=== PATIENT | male | born 1975 | race Caucasian/White ===

== ENCOUNTER 2023-05-08 00:41 | Inpatient (IN) | payer OTHER, SELFPAY ==
[2023-05-07 19:31] VITALS: BP 123/80; BMI 27.7
--- NOTE | 2023-05-07 19:44 | ED.GENMED ---
History of Present Illness
General
Chief Complaint: Chest Pain
Source: patient
Exam Limitations: none
Time Seen by Provider: 05/07/23 19:37
Travel History
Have you had any contact with someone who has COVID-19?: No
Do you have any symptoms of coronavirus? Fever > 100 degrees, chills, cough, shortness of breath, sore throat, loss of taste or smell, muscle aches, or headache?: No
History of Present Illness
History of Present Illness:
See MDM
Past History
Past History
ED Past Medical History: None
ED Past Surgical History: Other (Gastric bypass)
Social History
Tobacco: Non-smoker
Alcohol: None
Phy Exam
Physical Exam
Physical Exam:
See MDM
Scores
Heart Score for Chest Pain Patients
STEMI patient?: No
History: Slightly or Non-Suspicious
ECG: Normal
Age: >45 - <65 years
Risk Factors: 1 or 2 Risk Factors
Troponin: </= Normal Limit
Heart Score for Chest Pain Patients: 2
Heart Score Risk: 2.5% MACE over next 6 weeks
Course
Orders/Labs/Results
Orders:
Orders
05/07/23 19:31
EKG [Electrocardiogram (*1)] Urgent
Reason for Study: Tachycardia
EKG- Treatment ONCE
05/07/23 19:42
CT Abd/pel W Iv And Oral Contr Urgent
Comment:
Reason For Exam: General abd pain, constipated, hx bypass
Iohexol [Omnipaque] See Protocol PO NOW STA
Ketorolac [Toradol] 30 mg IV NOW STA
05/07/23 19:50
Comprehensive Metabolic Panel Urgent
Lipase Urgent
Troponin I Urgent
05/07/23 19:51
Complete Blood Count/With Diff Urgent
05/07/23 20:29
Dextrose 50%-Water [Dextrose 50% Syringe] 12.5 grams IV NOW STA
05/07/23 21:00
Dextrose 5%/0.9%Sodchl 1000 ml [D5/0.9% Sodium Chloride] 1,000 ml IV 150 mls/hr
05/07/23 23:10
Piperacillin/Tazo 3.375 Gram [Zosyn] 3.375 gram in 50 ml IV NOW
Vancomycin [Vancocin] 2,000 mg 0.9% Sodium Chloride 500 ml [Nss] 500 ml IV NOW
05/07/23 23:15
Blood Culture Q30M
FRANCISCA Source: Blood/Venous
Specimen Description:
05/07/23 23:45
Blood Culture Q30M
FRANCISCA Source: Blood/Venous
Specimen Description:
Abnormal Lab Results
05/07/23 05/07/23
19:50 19:51
RBC 3.72 L 10^6/uL
(4.70-6.10)
Hgb 7.1 L g/dL
(13.0-18.0)
Hct 25.7 L %
(39.0-52.0)
MCV 69.1 L fL
(80.0-94.0)
MCH 19.1 L pg
(27.0-31.0)
MCHC 27.6 L g/dL
(33.0-37.0)
RDW 18.9 H %
(11.5-14.5)
Plt Count 610 H 10^3/uL
(130-400)
Absolute Monos (auto) 1.1 H 10^3/uL
(0.1-0.6)
Monocytes % 12.4 H %
(1.7-9.3)
Potassium 3.4 L mmol/L
(3.5-5.1)
Chloride 115 H mmol/L
(98-107)
Carbon Dioxide 20 L mmol/L
(22-30)
Creatinine 0.6 L mg/dL
(0.7-1.3)
Glucose 30 L* mg/dl
(70-99)
Calcium 7.0 L mg/dl
(8.4-10.2)
Total Protein 6.2 L g/dl
(6.3-8.2)
Albumin 2.8 L g/dl
(3.5-5.0)
05/07/23 19:51
05/07/23 19:50
Vital Signs
Initial and Last Documented VS:
Initial Vital Signs
Temp Pulse Resp BP Pulse Ox
97.9 F 96 22 123/80 100
05/07/23 19:31 05/07/23 19:31 05/07/23 19:31 05/07/23 19:31 05/07/23 19:31
Last Documented Vital Signs
Temp Pulse Resp BP Pulse Ox
97.9 F 83 15 118/77 99
05/07/23 19:31 05/07/23 22:00 05/07/23 22:00 05/07/23 22:00 05/07/23 22:00
MDM/Problems Addressed
Differential Diagnosis Includes:
HPI and MDM Narrative:
47-year-old male presenting from [facility] for evaluation of chest pain and abdominal pain. Patient states abdominal pain has been going on for several days. He has not had a bowel movement in a week but that is not
uncommon for him. However, he does state he has a history of gastric bypass. Chest pain is nonexertional. EKG is nonischemic
Will obtain troponin given his complaint. Will obtain CT abdomen/pelvis given his history of bypass with abdominal pain
Physical exam
General: Appears sleepy and fatigued. Will answer questions appropriately
HEENT: protecting airway
Neck: appears supple
CV: No evidence of cyanosis. Regular rate and rhythm
Resp: No accessory muscle use. Lungs clear
Abd: Non-distended. No significant tenderness palpated
Extremities: No deformities
Neuro: alert
Psych: Normal affect
Skin: Intact
Problems Addressed including Acute and Chronic Conditions affecting care:
1. Chest pain
Acuity: acute
Prognosis: stable
Details: EKG nonischemic. Will obtain troponin. Lungs clear
2. Abdominal pain
Acuity: acute
Prognosis: stable
Details: Patient is likely constipated. However, will obtain CT given his history of gastric bypass to rule out any sort of obstruction versus internal hernia
3. Hypoglycemia
Acuity: acute
Prognosis: stable
Details: Likely in setting of poor p.o. intake. Will give half amp of dextrose and start D5 normal saline
4. Anemia
Acuity: acute
Prognosis: stable
Details: Likely in setting of malabsorption from gastric bypass
Updates
Patient found to be hypoglycemic on blood work. Will give amp of dextrose and start D5 normal saline
CT consistent with constipation as expected. No evidence of hernia or bowel obstruction. There is concern for pneumonia on the CT scan. This is likely the cause of his chest pain. Will start IV antibiotics and admit
Differential Diagnosis (but not limited to): Constipation, noncardiac chest pain, internal hernia, small bowel obstruction
Testing considered: Chest x-ray but lungs clear
Drug therapy (if applicable): OTC meds, please see d/c instruction regarding Rx drugs
Amount and/or Complexity of Data Reviewed
Clinical info obtained from: Patient
External data reviewed: N/A
Labs I independently reviewed (but not limited to): Anemic, low blood sugar
Radiology: The CT scan was personally and independently reviewed. In addition, official CT report reviewed.
Pulse Ox: not hypoxic
EKG independently reviewed: Sinus rhythm, normal axis, no STEMI
[facility]: Sinus rhythm
Critical Care: N/A
Risk of Complication:
Social Determinants of health: Poor social support
Discussed with other providers: Hospitalist
Escalation of Care includes Admit/Obs: Given the hypoglycemia and pneumonia, will admit
Occasional wrong word or 'sound a like' substitutions may have occurred due to the inherent limitations of voice recognition software. Read the chart carefully and recognize, using context, where substitutions have occurred.
*Critical Care Note
Total Time (30-74mins, 75-104mins- exclusive of procedures): Not Applicable
ED Attending Note
-
Portions of this chart may have been created with voice recognition software.� Occasional wrong word or��sound alike� substitutions may have occurred due to the inherent limitations of voice recognition software.
Discharge Plan
Departure
Patient Disposition: Admit
Date of Disposition: 05/07/23
Time of Disposition: 23:17
Admit to: Med/Surg
Presentation/result/management discussed w/ accepting MD/DO: Hospitalist
Discharge Problem:
PNA (pneumonia), Hypoglycemia, Anemia, Constipation
Referrals:
[facility] [Family Provider] -
Interventions
Interventions:
*Risk Screen - Suicide Last Done: 05/07/23 19:31
*General Assessment Last Done: 05/07/23 19:31
*Neglect/Abuse Screening Last Done: 05/07/23 19:31
ED- Fall Risk Assessment Last Done: 05/07/23 19:31
*ED COVID-19 Vaccine History Last Done: 05/07/23 19:31
ED- Cardiac Assessment Last Done: 05/07/23 19:31
[2023-05-07] MEDS: TORADOL 30 MG IV (19:58)
[2023-05-07] MEDS: OMNIPAQUE 50 ML PO (19:58)
[2023-05-07 20:00] VITALS: BP 112/75
[2023-05-07 20:07] LABS: % Eosinophils 2.5 % (0-6); % Immature Granulocytes 0.3 % (0-0.5); % Lymphocytes 24.4 % (20.5-51.1); % Monocytes 12.4 % (1.7-9.3); % Neutrophils 59.4 % (42.2-75.2); Absolute Basophils 0.1 10^3/uL (0-0.2); Absolute Eosinophils 0.2 10^3/uL (0-0.7); Absolute Lymphocytes 2.3 10^3/uL (1.2-3.4); Absolute Monocytes 1.1 10^3/uL (0.1-0.6); Absolute Neutrophils 5.5 10^3/uL (1.4-6.5); Hematocrit 25.7 % (39.0-52.0); Hemoglobin 7.1 g/dL (13.0-18.0); Mean Corp Hgb Conc. 27.6 g/dL (33.0-37.0); Mean Corpuscular Hgb 19.1 pg (27.0-31.0); Mean Corpuscular Volume 69.1 fL (80.0-94.0); Mean Platelet Volume 8.8 fL (7.4-10.4); Nucleated Red Blood Cells % 0 % (-); Platelet Count 610 10^3/uL (130-400); Red Blood Cell Count 3.72 10^6/uL (4.70-6.10); Red Cell Dist. Width 18.9 % (11.5-14.5); White Blood Cell Count 9.2 10^3/uL (4.8-10.8)
[2023-05-07 20:24] LABS: ALT (SGPT) 11 U/L (0-50); AST (SGOT) 22 U/L (17-59); Albumin 2.8 g/dl (3.5-5.0); Alkaline Phosphatase 99 U/L (38-126); Blood Urea Nitrogen 13 mg/dl (9-20); Carbon Dioxide 20 mmol/L (22-30); Chloride 115 mmol/L (98-107); Estimated Creatinine Clearance > 125 ml/min; Glucose 30 mg/dl (70-99); Lipase 180 U/L (23-300); Potassium 3.4 mmol/L (3.5-5.1); Sodium 137 mmol/L (135-145); Total Bilirubin 0.2 mg/dl (0.2-1.3); Total Protein 6.2 g/dl (6.3-8.2); eGFR > 60.00
[2023-05-07 20:27] LABS: Anisocytosis 1+; Hypochromasia 2+; Microcytosis 2+; Normal RBC Morphology No
[2023-05-07 20:28] LABS: Target Cells FEW
[2023-05-07 20:31] LABS: Troponin I < 0.012 ng/ml
[2023-05-07] MEDS: DEXTROSE 50% SYRINGE 12.5 GRAMS IV (20:32)
[2023-05-07] MEDS: D5/0.9% SODIUM CHLORIDE 1000 IV (20:38)
[2023-05-07 21:00] VITALS: BP 119/86
[2023-05-07 22:00] VITALS: BP 118/77
[2023-05-07 22:07] LABS: Glucose - Point of Care 86 mg/dl (70-99)
[2023-05-07 23:09] VITALS: BP 107/73
[2023-05-07] MEDS: ZOSYN 50 IV (23:27)
[2023-05-07] MEDS: VANCOCIN 540 MG IV (23:59)
[2023-05-08] VITALS (15 sets, daily range): BP systolic 99–127; BP diastolic 51–86; BMI 27.9
--- NOTE | 2023-05-08 00:28 | HPS.HSE ---
Family Physician
-
Family Physician: Facility [facility]
Chief Complaint
-
Chest Pain, Abdominal Pain, N/V
History of Present Illness
Patient is a 47y M with PMH significant for morbid obesity s/p gastric bypass and multiple surgeries related to traumas who presents to ED from [facility] complaining of chest pain and abdominal pain. At the time of my exam, patient is restless in
the bed and complaining of pain from the BP cuff. He states that he cannot remember why he came in. He admits that he has not moved his bowels since being incarcerated (6 days ago). He complains of abdominal pain, chest pain, heartburn. He notes
that he developed N/V today and had an episode prior to arrival and an episode here. He denies any gross blood loss. Patient denies any alcohol use. He takes drugs 'socially' but denies any daily habit. He is not sure what he takes / when he
takes them.
Patient was started on antibiotics (Cipro and Bactrim) in [facility] for RLE cellulitis.
Medical History
Past Medical History
Past Medical History: Reports Other
Additional Past Medical History:
Morbid Obesity s/p Gastric Bypass
GERD
Lumbar DDD / Fusion
Past Surgical History: Reports Other
Additional Past Surgical History:
Craniofacial Reconstruction (Chain saw)
Digital Reattachment (Circular Saw)
Jarred-en-Y Bypass
Lumbar Laminectomy and Fusion
Multiple Lumbar / Spine Surgeries
Social History
Tobacco: Smoker (Current every day smoker (none in 6 days since being incarcerated).)
Alcohol: None
Drug: Other (Occasional recreational drug use. No IV use.)
Living: [facility]
Family History
Family History: Not pertinent
Allergies / Home Medications
Allergies reflects when Allergies were last updated in [facility].
Home Medications with original date entered in [facility]
Allergy/Medication List:
Allergies
Allergy/AdvReac Type Severity Reaction Status Date / Time
No Known Allergies Allergy Verified 05/07/23 19:52
Home Medications
acetaminophen 325 mg tablet 650 mg PO BID PRN mild pain/fever 05/07/23
calcium carbonate 200 mg calcium (500 mg) chewable tablet (Calcium Antacid) 400 mg PO BID PRN heartburn 05/07/23
ciprofloxacin HCl 750 mg tablet 750 mg PO BID 05/07/23
multivitamin (Daily-Марина tablet) 1 tab PO DAILY 05/07/23
omeprazole 20 mg capsule,delayed release 20 mg PO DAILY 05/07/23
sulfamethoxazole 800 mg-trimethoprim 160 mg tablet (Bactrim DS) 1 tab PO BID 05/07/23
Review of Systems
-
History Source: Patient
A 12 point ROS was completed and negative except as noted: Yes
Constitutional: Denies Fever or Chills
EENT: Denies Sore Throat
Respiratory: Reports Trouble Breathing; Denies Cough
Cardiac: Reports Chest Pain
Abdomen/GI: Reports Abdominal Pain, Nausea, Vomiting, Constipated and Anorexia; Denies Bloody Stools or Black Stools
: Denies Dysuria, Frequency or Flank Pain
Neurological: Denies Dizzy or Headache
Psych: Reports Anxiety; Denies Depression
Physical Exam
Vital Signs
Vital Signs
Temp Pulse Resp BP Pulse Ox
97.9 F 79 15 107/73 98
05/07/23 19:31 05/07/23 23:45 05/07/23 23:45 05/07/23 23:09 05/08/23 00:06
Physical Exam
General: Other (47y M in moderate distress due to pain.)
HEENT: PERRLA and Other (Dry MM.)
Respiratory: Clear; No Wheezes, Rales or Rhonchi
Cardiac: S1/S2 and Regular Rhythm; No Murmur
GI: Other (Abdomen is softly distended. Bowel sounds are present but diminished. Diffusely tender without rebound. )
Musculoskeletal: No Clubbing, No Cyanosis and Other (Trace edema RLE with mild erythema and increased warmth.)
Neuro: AO x 3
Laboratory Results
-
05/07/23 19:51
05/07/23 19:50
Laboratory Results
Total Bilirubin 0.2 mg/dl (0.2-1.3) 05/07/23 19:50
AST 22 U/L (17-59) 05/07/23 19:50
ALT 11 U/L (0-50) 05/07/23 19:50
Alkaline Phosphatase 99 U/L (38-126) 05/07/23 19:50
Troponin I < 0.012 ng/ml 05/07/23 19:50
Lipase 180 U/L (23-300) 05/07/23 19:50
Impression/Plan
-
A/P: Patient is a 47y M with PMH significant for mutliple prior traumas and obesity s/p bypass surgery who presents [facility] ED from [facility] complaining of chest pain and abdominal pain.
Abdominal Pain
Severe Constipation
N/V likely secondary to the above
- Admit for further evaluation and treatment.
- Aggressive bowel regimen to alleviate significant constipation
- Patient has refused milk and molasses enema in the ED - I have urged him to reconsider.
- GI evaluation for additional recommendations and anemia eval (see below).
- Follow for clinical improvement.
- Avoid narcotic medications which may contribute to constipation.
RLE Cellulitis
- Patient with erythema and edema of the R lower leg.
- Some local skin breakdown / excoriations which appear to be secondary to restraints / cuffs.
- Change abx to IV Ancef for now.
- Follow for clinical improvement.
- Patient denies any immunocompromised state, IV drug use, etc.
Chest Pain
- Likely secondary to GI issues / constipation.
- Doubt ACS. Continue to follow serial trop and monitor for new symptoms.
- IV PPI for GERD symptoms worsened by constipation.
Hypoglycemia
- Patient initially presented with glucose of 30 - improved with supplemental glucose.
- He is on no glucose lowering medications.
- ? related to gastric bypass surgery / ? dumping syndrome - isabela with typically carb-heavy foods at [facility].
- Follow serial glucose and treat low values if needed.
- Continue IVFs with D5 overnight.
Microcytic Anemia
- Likely secondary to dietary deficiencies / prior gastric bypass.
- Patient notes that he is on no dietary supplements, etc.
- Check iron studies, B12, etc.
- Monitor for any obvious evidence of bleeding.
- Consider transfusion for Hgb < 7 or any new symptoms.
- GI eval as noted above - patient may benefit from eventual endoscopic evaluation(s).
Drug Use
- Patient denies any regular drug or alcohol use.
- Has been incarcerated x 6 days now.
- Agitated / restless in the ED.
- Monitor for worsening / additional symptoms that might be suggestive of substance withdrawal.
- BZDs as needed for increased agitation.
DVT Prophylaxis: SCDs
Code Status: Full
[2023-05-08] MEDS: D5/0.9% SODIUM CHLORIDE 1000 IV ×3 (02:46→21:58)
[2023-05-08 03:02] LABS: Glucose - Point of Care 79 mg/dl (70-99)
[2023-05-08 03:23] LABS: Iron 34 ug/dl (49-181)
[2023-05-08 03:33] LABS: Percent Saturation 8 % (20-50); Total Iron Binding Capacity 413 ug/dl (261-462)
[2023-05-08 03:34] LABS: Troponin I < 0.012 ng/ml
[2023-05-08 03:56] LABS: TSH Reflex To Free T4 1.68 uIU/ml (0.47-4.68)
[2023-05-08 04:00] LABS: Ferritin 5.1 ng/ml (17.9-464.0)
[2023-05-08 04:15] LABS: Vitamin B12 567 pg/ml (239-931)
[2023-05-08 06:20] LABS: Hematocrit 24.3 % (39.0-52.0); Mean Corp Hgb Conc. 27.6 g/dL (33.0-37.0); Mean Corpuscular Hgb 19.3 pg (27.0-31.0); Mean Corpuscular Volume 69.8 fL (80.0-94.0); Mean Platelet Volume 8.4 fL (7.4-10.4); Platelet Count 481 10^3/uL (130-400); Red Blood Cell Count 3.48 10^6/uL (4.70-6.10); Red Cell Dist. Width 18.9 % (11.5-14.5); White Blood Cell Count 6.9 10^3/uL (4.8-10.8)
[2023-05-08 06:31] LABS: Hemoglobin 6.7 g/dL (13.0-18.0)
[2023-05-08 06:37] LABS: Troponin I < 0.012 ng/ml
[2023-05-08 06:40] LABS: Blood Urea Nitrogen 14 mg/dl (9-20); Calcium 8.6 mg/dl (8.4-10.2); Carbon Dioxide 29 mmol/L (22-30); Chloride 104 mmol/L (98-107); Estimated Creatinine Clearance > 125 ml/min; Glucose 86 mg/dl (70-99); Magnesium 2.1 mg/dl (1.6-2.3); Potassium 4.3 mmol/L (3.5-5.1); Sodium 138 mmol/L (135-145); eGFR > 60.00
[2023-05-08] MEDS: PROTONIX IV 40 MG IV (07:57)
[2023-05-08] MEDS: NSS (PRESERVATIVE FREE) 10 ML IV (07:57)
[2023-05-08] MEDS: MIRALAX 17 GRAMS PO (07:57)
[2023-05-08] MEDS: COLACE 100 MG PO ×2 (07:57→21:45)
[2023-05-08 08:54] LABS: Glycohemoglobin (HgbA1c) 5.6 % (4.0-5.6)
--- NOTE | 2023-05-08 09:09 | CON.GI ---
Addendum entered and electronically signed by Natalie Hernandes DO 05/08/23 14:52:
Patient seen and examined independently of BOLIVAR. I agree with her note with my additions below
Kermit is a 47-year-old male with a history of Jarred-en-Y gastric bypass, no other abdominal surgeries but multiple injuries resulting in surgical procedures who does not seek medical care, currently incarcerated for the past week who comes in with
abdominal pain after not moving his bowels for 1 week. At baseline he says he goes every other day. He denies seeing any blood in the stool. Everything in his life is changed since being incarcerated. Previously using methamphetamines and
tobacco. Not on any medications previously. He currently feels nauseated, no vomiting, mainly crampy abdominal pain with distention. Says he is passing gas. This is never happened to him before.
# Microcytic anemia -likely in the setting of Jarred-en-Y gastric bypass and no medical care and no iron supplementation
-Patient getting transfused, no overt bleeding
# Abdominal pain -likely secondary to significant constipation -which could be functional or structural
--Unfortunately he is nauseous and on the verge of vomiting and therefore oral bowel regimen will be difficult
--Soon as he is able we will start oral regimen
-- Patient is agreeable to start enemas and will do them every 6
-- Tomorrow if no improvement consider Gastrografin enema to be both diagnostic and therapeutic
-- Avoid narcotics as this will only worsen the situation
Original Note:
Consultation
-
Date/Time Consultation Requested: 05/08/2351
Date/Time Consultation Performed: 05/08/23 0850
Requesting Provider: Dr. Corbett
Performing Provider: Dr. Hernandes/BOLIVAR Whaley
Reason for Consultation: constipation, anemia
Medical History
Chief Complaint / HPI
Chief Complaint: n/v, abdominal pain, CP
History of Present Illness:
47-year-old male who is currently incarcerated at [facility] for the past 6 days with no significant past medical history except for multiple traumas in the past, degenerative disc disease, lumbar fusion, gastric bypass which
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
distention. We are asked to evaluate for abdominal pain, anemia and constipation. The patient is a very poor historian, he does not give much information. He was interviewed in the presence of 2 guards. The patient states that his bowel habits
are usually every other day. He states his last bowel movement was 9 days ago. He also states that he started to have heartburn approximately 1 week ago. He presents with very vague complaints of heartburn, abdominal discomfort, abdominal
distention. He states he does not know what medications he was given. I did review the MAR from the long term. He was getting omeprazole, calcium carbonate, Tums, Bactrim, Cipro, Tylenol as needed, ibuprofen 400 mg as needed which on some days was
twice a day and a multivitamin. The patient denies any recent fevers, chills, he denies any recent vomiting to me although it does describe that he did have vomiting, melena, hematochezia, dysphagia or odynophagia, he denies any early satiety or
unintentional weight loss. He does state that he smokes cigarettes, he also uses illicit drugs in the form of methamphetamines and 'speedballs', he states that he last used this a little over a week ago. He does state that he was seen at the
[facility] [place] and had some sort of endoscopic procedure a little over a year ago. He does not recall why he had this. He does not recall actually what it was and he does not recall the findings. He does not recall ever having an
ulcer. He does not recall ever being told he was anemic in the past. Currently his father is in the ICU at [facility] with a bowel perforation. The patient has never had a colonoscopy. He does believe he has had an upper endoscopy
although he is unsure of when or where and does not recall any of the findings. He cannot tell me where he has had his bariatric surgery at he can also not tell me what the anatomy is like as well, whether it is a true gastric bypass Jarred-en-Y or
gastric sleeve. The patient denies any family history of GI malignancy to his knowledge.
Past Medical History
Past Medical History: GERD (recent heartburn x 1 week) and Other (drug abuse, multiple traumas, RLE cellulitis)
Past Surgical History: Other (lumbar fusion, gastric byspass )
Social History
Tobacco: Smoker
Alcohol: None
Drug: Other ('speed balls', meth)
Living: [facility] (6 days)
Family History
Family History: Other (no fam hx of GI malignancy, however father currently in ICU at [facility] for bowel perforation)
Allergies / Home Medications
Allergy/AdvReac Type Severity Reaction Status Date / Time
No Known Allergies Allergy Verified 05/07/23 19:52
Medication Instructions Recorded
acetaminophen 325 mg tablet 650 mg PO BID PRN mild pain/fever 05/07/23
calcium carbonate 200 mg calcium 400 mg PO BID PRN heartburn 05/07/23
(500 mg) chewable tablet (Calcium
Antacid)
ciprofloxacin HCl 750 mg tablet 750 mg PO BID 05/07/23
multivitamin (Daily-Марина tablet) 1 tab PO DAILY 05/07/23
omeprazole 20 mg capsule,delayed 20 mg PO DAILY 05/07/23
release
sulfamethoxazole 800 1 tab PO BID 05/07/23
mg-trimethoprim 160 mg tablet
(Bactrim DS)
Review of Systems
-
All other systems: A 12 pt ROS was Negative except as stated above in HPI
Vital Signs
Temp Pulse Resp BP Pulse Ox
97.9 F 59 14 115/72 100
05/07/23 19:31 05/08/23 06:06 05/08/23 06:00 05/08/23 06:06 05/08/23 04:45
Physical Exam
Exam
General: No Apparent Distress and Comfortable
HEENT: Anicteric
Respiratory: Clear (anterior)
Cardiac: Regular Rhythm
GI: Soft, Normal Bowel Sounds, Tender (mildly tender diffuse) and Distended (midly distended but soft)
Musculoskeletal: No Edema and Other (right leg shackle, loose afixed to bed)
Skin: Warm, Dry and Other (areas of abrasions on multiple sites over body)
Neuro: AO x 3
Psych: Calm
Results
WBC 6.9 10^3/uL (4.8-10.8) 05/08/23 06:03
Hgb 6.7 g/dL (13.0-18.0) L* 05/08/23 06:03
Hct 24.3 % (39.0-52.0) L 05/08/23 06:03
MCV 69.8 fL (80.0-94.0) L 05/08/23 06:03
Plt Count 481 10^3/uL (130-400) H D 05/08/23 06:03
Absolute Neuts (auto) 5.5 10^3/uL (1.4-6.5) 05/07/23 19:51
Sodium 138 mmol/L (135-145) 05/08/23 06:03
Potassium 4.3 mmol/L (3.5-5.1) D 05/08/23 06:03
Chloride 104 mmol/L (98-107) 05/08/23 06:03
Carbon Dioxide 29 mmol/L (22-30) 05/08/23 06:03
BUN 14 mg/dl (9-20) 05/08/23 06:03
Creatinine 0.8 mg/dL (0.7-1.3) 05/08/23 06:03
Calcium 8.6 mg/dl (8.4-10.2) D 05/08/23 06:03
Total Bilirubin 0.2 mg/dl (0.2-1.3) 05/07/23 19:50
AST 22 U/L (17-59) 05/07/23 19:50
ALT 11 U/L (0-50) 05/07/23 19:50
Alkaline Phosphatase 99 U/L (38-126) 05/07/23 19:50
Lipase 180 U/L (23-300) 05/07/23 19:50
Diagnostic Image Results:
CT Abd/Pelvis with OV contrast only:
IMPRESSION:
1. Very large colonic stool burden compatible with constipation.
2. Small patchy opacities in the left lower lobe most suspicious for mild pneumonia.
Electronically signed by Fran Alonso 05/07/2023 10:40 PM
CXR:
FINDINGS/impression:
The small patchy opacities described in the left lower lobe based on CT examination are difficult to identify radiographically. The lungs are essentially radiographically clear as far as visualized. No focal dense consolidation. No pneumothorax or
pleural effusion. No congestive heart failure.
Electronically signed by Damian Alvarenga MD 05/08/2023 8:43 AM
Prior GI Procedures:
EGD: unsure if had??
Colonoscopy: never had
Assessment / Plan
-
47-year-old male who is currently incarcerated at [facility] for the past 6 days with no significant past medical history except for multiple traumas in the past, degenerative disc disease, lumbar fusion, gastric bypass which
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
distention. We are asked to evaluate for abdominal pain, anemia and constipation. WBC is 6.9 (down from 7.1), hemoglobin is 6.7, hematocrit is 24.3, MCV is 69.8, MCH is 19.3, platelets 481. On arrival patient's glucose was 30 currently is 86.
Iron is 34, TIBC is 413, percent iron saturation is 8, ferritin is 5.1, total bilirubin 0.2, AST 22, ALT 11, alk phos 99 troponins have been less than 0.012 x 3, albumin 2.8, lipase 180, B12 567, TSH 1.68. CT of the abdomen and pelvis with IV
contrast only was performed that shows very large colonic stool burden compatible with constipation. Small patchy opacities in the left lower lobe most suspicious for mild pneumonia. I reviewed the CT images myself and it looks like the patient
has a very large amount of stool especially in the right side of his colon. The patient was ordered a milk of molasses enema which he refused. He was also ordered 1 unit of packed red blood cells, he has not received this as of yet. The patient
was started on pantoprazole, was given a dose of Toradol in the ER, this has not been continued. He was given a dose of MiraLAX and Colace. He continues on IV fluids. As well as Ancef. He remains on a clear liquid diet at this time.
Impression:
Abdominal pain
Severe constipation
Anemia, iron deficiency
History of gastric bypass
Plan:
-Continue PPI
-Transfuse to keep hemoglobin greater than 7
-Discussed with patient that he should consider using milk of molasses enema to stimulate bowel movements from below
-Continue MiraLAX, increase to twice daily
-Would avoid IV iron in times of acute infection
-Possible EGD/colonoscopy with severe anemia and change in bowel habits. Unsure how long patient is going to be incarcerated and unable to perform procedures. Also with patient's father with bowel perforation unsure etiology behind this.
-
Data Reviewed
-
Radiology: Report Reviewed by me
CT Scan: Report Reviewed by me
-
-
Thank you for consultation and allowing me to participate in the patient's care. Please call the field education coordinator GI physician during the after hours with any questions or concerns.
[2023-05-08] MEDS: ANCEF 10 IV ×2 (09:16→18:23)
[2023-05-08 11:41] LABS: Glucose - Point of Care 126 mg/dl (70-99)
[2023-05-08 17:37] LABS: Glucose - Point of Care 66 mg/dl (70-99)
--- NOTE | 2023-05-08 17:50 | TRANSFER ---
Patient transferred from ED to 334 and walked from stretcher to bed accompanied by officers. VSFrancisco, [email or web address], admission completed in ED. Assessment complete by this RN. Call johnson within reach.
[2023-05-08] MEDS: CITROMA 300 ML PO (18:03)
[2023-05-08 18:19] LABS: Glucose - Point of Care 75 mg/dl (70-99)
[2023-05-08 18:27] LABS: Troponin I < 0.012 ng/ml
--- NOTE | 2023-05-08 18:28 | W.PN.UPDATE ---
Update Note
Progress Note Update
Non-billable addendum
Patient with symptomatic anemia - 2 units ordered
GI saw in consult - conservative treatment at this time. Likely deficient in setting of RYGB and lack of oral iron.
Also receiving bowel regimen (enemas due to nausea)
Assessment:
Abdominal Pain
Severe Constipation
N/V likely secondary to the above
- Aggressive bowel regimen to alleviate significant constipation as per GI
- Avoid narcotic medications which may contribute to constipation.
RLE Cellulitis
- Patient with erythema and edema of the R lower leg.
- Some local skin breakdown / excoriations which appear to be secondary to restraints / cuffs.
- Change abx to IV Ancef for now.
Chest Pain
- Likely secondary to GI issues / constipation.
- Doubt ACS.� Continue to follow serial trop and monitor for new symptoms.
- IV PPI for GERD symptoms worsened by constipation.
Hypoglycemia
- Patient initially presented with glucose of 30 - improved with supplemental glucose.
- He is on not glucose lowering medications.
- ? related to gastric bypass surgery / ? dumping syndrome - isabela with typically carb-heavy foods at detention.
- Follow serial glucose and treat low values if needed.
- Continue IVFs/D5
Microcytic Anemia
- Likely secondary to dietary deficiencies / prior gastric bypass.
- Patient notes that he is on no dietary supplements, etc.
- He is iron deficiency
- Hb 6.7 - 2 units ordered
- GI eval as noted above - patient may benefit from eventual endoscopic evaluation(s).
Drug Use
- Patient denies any regular drug or alcohol use.
- Has been incarcerated x 6 days now.
- Agitated / restless in the ED.
- Monitor for worsening / additional symptoms that might be suggestive of substance withdrawal.
- BZDs as needed for increased agitation.
DVT Prophylaxis:� SCDs
Code Status:� Full
[2023-05-08 20:04] LABS: Glucose - Point of Care 70 mg/dl (70-99)
[2023-05-08] MEDS: SENOKOT 17.1999999999999993 MG PO (21:45)
[2023-05-08 22:00] LABS: Glucose - Point of Care 94 mg/dl (70-99)
[2023-05-09] VITALS (8 sets, daily range): BP systolic 108–149; BP diastolic 60–90; PULSE 53–85; BMI 26.8
[2023-05-09] MEDS: ANCEF 10 IV ×3 (01:03→16:05)
[2023-05-09 07:42] LABS: Hematocrit 29.8 % (39.0-52.0); Mean Corp Hgb Conc. 28.9 g/dL (33.0-37.0); Mean Corpuscular Hgb 20.3 pg (27.0-31.0); Mean Corpuscular Volume 70.4 fL (80.0-94.0); Mean Platelet Volume 8.3 fL (7.4-10.4); Platelet Count 493 10^3/uL (130-400); Red Blood Cell Count 4.23 10^6/uL (4.70-6.10); Red Cell Dist. Width 19.5 % (11.5-14.5); White Blood Cell Count 5.6 10^3/uL (4.8-10.8)
[2023-05-09 07:45] LABS: Hemoglobin 8.6 g/dL (13.0-18.0)
[2023-05-09 07:58] LABS: Blood Urea Nitrogen 9 mg/dl (9-20); Calcium 8.8 mg/dl (8.4-10.2); Carbon Dioxide 30 mmol/L (22-30); Chloride 101 mmol/L (98-107); Estimated Creatinine Clearance > 125 ml/min; Glucose 91 mg/dl (70-99); Potassium 4.4 mmol/L (3.5-5.1); Sodium 138 mmol/L (135-145); eGFR > 60.00
[2023-05-09] MEDS: D5/0.9% SODIUM CHLORIDE IV (08:16)
[2023-05-09] MEDS: D5/0.9% SODIUM CHLORIDE 1000 IV (08:16)
[2023-05-09 08:17] LABS: Glucose - Point of Care 255 mg/dl (70-99)
[2023-05-09] MEDS: TORADOL 15 MG IV (08:18)
[2023-05-09] MEDS: PROTONIX IV 40 MG IV (08:20)
[2023-05-09] MEDS: COLACE 100 MG PO ×2 (08:21→20:26)
[2023-05-09] MEDS: NSS (PRESERVATIVE FREE) 10 ML IV (08:21)
[2023-05-09] MEDS: MIRALAX 17 GRAMS PO ×2 (08:21→20:25)
[2023-05-09 09:04] LABS: Folate 9.8 ng/ml (2.76-20)
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
--- NOTE | 2023-05-09 11:54 | W.PN.HOSP.TC ---
Today's Communication/Plan
-
advance diet, monitor BMs
IV iron
IV Abx for cellulitis
Assessment / Plan
Assessment / Plan
Assessment:
Abdominal Pain
Severe Constipation
N/V likely secondary to the above
- Aggressive bowel regimen to alleviate significant constipation as per GI; has had successful BMs
- Avoid narcotic medications which may contribute to constipation.
RLE Cellulitis
- Patient with erythema and edema of the R lower leg.
- Some local skin breakdown/excoriations which appear to be secondary to restraints / cuffs.
- Continue IV Ancef for now. - and dc on Keflex x 10 days total
Chest Pain
- Likely secondary to GI issues/constipation.
- Doubt ACS, trops negative
- IV PPI for GERD symptoms worsened by constipation.
Hypoglycemia
- ? related to gastric bypass surgery / ? dumping syndrome - isabela with typically carb-heavy foods at snf.
- Patient initially presented with glucose of 30 - improved with supplemental glucose and IVF
- advance diet
Microcytic Anemia
- Likely secondary to dietary deficiencies/prior gastric bypass.
- Patient notes that he is on no dietary supplements, etc.
- He is iron deficiency
- Hb 8.6 after 2 units PRBC
- IV Iron course while in house
- GI eval as noted above - patient may benefit from eventual endoscopic evaluation outpatient.
Drug Use
- Patient denies any regular drug or alcohol use.
- Has been incarcerated x 6 days now.
- Agitated / restless in the ED but more pleasant on floors
- Monitor for worsening / additional symptoms that might be suggestive of substance withdrawal.
- BZDs as needed for increased agitation.
DVT Prophylaxis:� SCDs
Code Status:� Full
Anticipated Discharge: Within 24 hours
Subjective/Interval History
-
Date of Service: May 09, 2023
had 3 BMs after Mag citrate/Miralax, tolerating clears. Pain improving. Hb increasing.
Objective Data
-
Labs:
Laboratory Results
05/09/23
07:19
WBC 5.6
Hgb 8.6 L D
Hct 29.8 L
Plt Count 493 H
Sodium 138
Potassium 4.4
Chloride 101
Carbon Dioxide 30
BUN 9
Creatinine 0.6 L
Glucose 91
Calcium 8.8
Vital Signs:
Vital Signs
Temp Pulse Resp BP Pulse Ox
98.1 F 67 17 120/60 99
05/09/23 08:15 05/09/23 08:15 05/09/23 08:15 05/09/23 08:15 05/09/23 08:15
I&O
05/08/23 05/09/23 05/10/23
06:59 06:59 06:59
Intake Total 4400 / 4400
Output Total 875 / 875 5975 / 5975
Balance -875 / -875 -1575 / -1575
Physical Exam
-
General: Well Developed and Well Nourished
HEENT: Normocephalic and Atraumatic
Respiratory: Clear to Auscultation; Negative Wheezes or Rales
Cardiac: Regular Rhythm and S1/S2
GI: Soft and Nondistended
Genito-urinary: No Costovertebral Tender
Musculoskeletal: No Edema
Neuro: AO x 3
Hematologic / Lymphatic: No Lymphadenopathy
Psych: Calm
Data Reviewed
-
Total Time Spent with Patient (in minutes): 42
Labs: Labs Reviewed by me
[2023-05-09 12:32] LABS: Glucose - Point of Care 96 mg/dl (70-99)
--- NOTE | 2023-05-09 16:17 | CM ---
Chart reviewed
[facility] from [facility]
Receiving IV antibiotics, IV meds
CM will follow for d/c needs
Plan - anticipate return to [facility] at d/c
[2023-05-09 17:36] LABS: Glucose - Point of Care 89 mg/dl (70-99)
[2023-05-09] MEDS: SENOKOT 17.1999999999999993 MG PO (20:25)
[2023-05-10] MEDS: ANCEF 10 IV ×2 (00:05→09:02)
[2023-05-10 03:20] VITALS: BP 118/66
[2023-05-10 06:00] VITALS: BMI 25.8
[2023-05-10 07:23] VITALS: BP 120/79
[2023-05-10 07:39] LABS: Blood Urea Nitrogen 18 mg/dl (9-20); Calcium 8.7 mg/dl (8.4-10.2); Carbon Dioxide 28 mmol/L (22-30); Chloride 102 mmol/L (98-107); Estimated Creatinine Clearance > 125 ml/min; Glucose 78 mg/dl (70-99); Potassium 4.6 mmol/L (3.5-5.1); Sodium 136 mmol/L (135-145); eGFR > 60.00
[2023-05-10] MEDS: PROTONIX IV 40 MG IV (09:04)
[2023-05-10] MEDS: COLACE 100 MG PO (09:04)
[2023-05-10] MEDS: NSS (PRESERVATIVE FREE) 10 ML IV (09:04)
[2023-05-10] MEDS: MIRALAX 17 GRAMS PO (09:04)
[2023-05-10 09:28] LABS: Hematocrit 31.1 % (39.0-52.0); Hemoglobin 8.7 g/dL (13.0-18.0); Mean Corpuscular Hgb 20.2 pg (27.0-31.0); Mean Corpuscular Volume 72.2 fL (80.0-94.0); Mean Platelet Volume 8.8 fL (7.4-10.4); Platelet Count 507 10^3/uL (130-400); Red Blood Cell Count 4.31 10^6/uL (4.70-6.10); Red Cell Dist. Width 20.2 % (11.5-14.5); White Blood Cell Count 5.5 10^3/uL (4.8-10.8)
--- NOTE | 2023-05-10 11:12 | W.PN.HOSP.TC ---
Today's Communication/Plan
-
dc back to [facility]
Assessment / Plan
Assessment / Plan
Assessment:
Abdominal Pain
Severe Constipation
N/V likely secondary to the above
- Aggressive bowel regimen to alleviate significant constipation as per GI; has had successful BMs
- continue Miralax BID at discharge
- Avoid narcotic medications which may contribute to constipation.
RLE Cellulitis
- Patient with erythema and edema of the R lower leg.
- Some local skin breakdown/excoriations which appear to be secondary to restraints / cuffs.
- Continue IV Ancef for now. - and dc on Keflex x 10 days total
Chest Pain
- Likely secondary to GI issues/constipation.
- Doubt ACS, trops negative
- continue PPI at discharge
Hypoglycemia
- ? related to gastric bypass surgery / ? dumping syndrome - isabela with typically carb-heavy foods at [facility].
- Patient initially presented with glucose of 30 - improved with supplemental glucose and IVF
- advance diet
Microcytic Anemia
- Likely secondary to dietary deficiencies/prior gastric bypass.
- Patient notes that he is on no dietary supplements, etc.
- He is iron deficiency
- Hb 8.7 after 2 units PRBC
- IV Iron course while in house - oral iron at vt
- GI eval as noted above - patient may benefit from eventual endoscopic evaluation outpatient.
Drug Use
- Patient denies any regular drug or alcohol use.
- Has been incarcerated x 6 days now.
- Agitated / restless in the ED but more pleasant on floors
- Monitor for worsening / additional symptoms that might be suggestive of substance withdrawal.
- BZDs as needed for increased agitation.
DVT Prophylaxis:� SCDs
Code Status:� Full
More than 30 minutes spent in discharge including
Final examination of the patient
Summarizing hospital stay
Instructions for continuing care to all relevant caregivers
Preparation of discharge records, prescriptions, and referral forms
Total time spent (in minutes): 45
Anticipated Discharge: Today
Subjective/Interval History
-
Date of Service: May 10, 2023
last BM yesterday evening
denies any abd pain, tolerating diet
Objective Data
-
Labs:
Laboratory Results
05/10/23
06:12
WBC 5.5
Hgb 8.7 L
Hct 31.1 L
Plt Count 507 H
Sodium 136
Potassium 4.6
Chloride 102
Carbon Dioxide 28
BUN 18
Creatinine 0.8
Glucose 78
Calcium 8.7
Vital Signs:
Vital Signs
Temp Pulse Resp BP Pulse Ox
98.3 F 60 16 120/79 98
05/10/23 07:23 05/10/23 07:23 05/10/23 07:23 05/10/23 07:23 05/10/23 07:23
I&O
05/09/23 05/10/23 05/11/23
06:59 06:59 06:59
Intake Total 4400 / 4400 3960 / 3960
Output Total 5975 / 5975 6850 / 6850
Balance -1575 / -1575 -2890 / -2890
Physical Exam
-
General: No Apparent Distress
HEENT: Normocephalic and Atraumatic
Respiratory: Negative Wheezes or Rales
Cardiac: Regular Rhythm and S1/S2
GI: Soft
Genito-urinary: No Costovertebral Tender
Musculoskeletal: No Edema and Other (RLE cellulitis)
Neuro: AO x 3
Psych: Calm
Data Reviewed
-
Total Time Spent with Patient (in minutes): 45
Labs: Labs Reviewed by me
[2023-05-10] MEDS: FERRLECIT 110 MG IV (11:19)
--- NOTE | 2023-05-10 11:20 | W.DS.TRANS ---
DC Summary - [facility] Passer
-
Discharge Instructions:
Discharge Diagnosis/Procedures constipation, iron deficiency anemia
Diet Regular
Activity As tolerated
Bathing Restrictions None
Instructions:
Stand-Alone Forms:
Changes to Home Medications: No
Discharge Medications:
DC Medications w/original date entered in [employer]
acetaminophen 325 mg tablet 650 mg PO BID PRN mild pain/fever 05/07/23
calcium carbonate 200 mg calcium (500 mg) chewable tablet (Calcium Antacid) 400 mg PO BID PRN heartburn 05/07/23
multivitamin (Daily-Марина tablet) 1 tab PO DAILY Supplement 05/07/23
omeprazole 20 mg capsule,delayed release 20 mg PO DAILY Gastrointestinal Issue 05/07/23
cephalexin 500 mg capsule 500 mg PO QID #40 caps 05/10/23
ferrous sulfate 325 mg (65 mg iron) tablet 325 mg PO DAILY #100 tabs 05/10/23
pantoprazole 40 mg tablet,delayed release 40 mg PO DAILY #30 tabs 05/10/23
polyethylene glycol 3350 17 gram oral powder packet (HealthyLax) 17 g PO BID #60 ea 05/10/23
sulfamethoxazole 800 mg-trimethoprim 160 mg tablet (Bactrim DS) 1 tab PO BID Infection #20 tabs 05/10/23
Home Medication Changes
Pending Results: No
Total time spent discharging patient (in min): 42
== END 2023-05-10 13:23 | DRG 392 ==
LOC: 3 WEST ACU 00:41
PROVIDERS: ADMITTING PHYSICIAN Hospitalist; ATTENDING PHYSICIAN Internal Medicine; CONSULT PHYSICIAN Internal Medicine; EMERGENCY PHYSICIAN Student in an Organized Health Care Education/Training Program
PROC: 30233N1 Transfusion of Nonautologous Red Blood Cells into Peripheral Vein, Percutaneous Approach (ICD-10-PCS; 2023-05-08)
DX: K59.00 Constipation, unspecified (principal); L03.115 Cellulitis of right lower limb; E16.2 Hypoglycemia, unspecified; D50.9 Iron deficiency anemia, unspecified; K21.9 Gastro-esophageal reflux disease without esophagitis; F19.10 Other psychoactive substance abuse, uncomplicated; F17.210 Nicotine dependence, cigarettes, uncomplicated; K91.1 Postgastric surgery syndromes; Z98.84 Bariatric surgery status
CPT/HCPCS: 71046; 74018; 74177; 80048; 80053; 82607; 82728; 82746; 82962; 83036; 83540; 83550; 83690; 83735; 84443; 84484; 85025; 85027; 86850; 86900; 86901; 86920; 87040; 87070; 87147; 93005; 96365; 96366; 96367; 96375; 99285; 99406; J2916; P9016; Q9967